=== PATIENT | female | born 1995 | race Asian ===

== ENCOUNTER 2024-09-12 11:13 | Emergency (ER) | payer MEDICAID, SELFPAY ==
[2024-09-12 11:16] VITALS: BP 144/81
--- NOTE | 2024-09-12 12:43 | ED.GENMED ---
History of Present Illness
General
Chief Complaint: Musculo-Skeletal Complaint
Source: patient
Exam Limitations: none
Time Seen by Provider: 09/12/24 11:45
History of Present Illness
History of Present Illness:
28yoF with a history of eczema and Raynaud's presenting for evaluation of flu-like symptoms. She started with malaise, fatigue, and feeling feverish yesterday. She woke up this morning and felt joint pains primarily in her lower extremities. She
also noticed a facial rash which appeared red on both cheeks. She took 800 mg of ibuprofen and her rash resolved. She also has a mild sore throat. She had UTI symptoms last week but denies any urinary symptoms currently. She denies any cough,
vomiting, diarrhea, recent travel, sick contacts. 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 She is mainly concerned that she may have lupus.
Past History
Past History
ED Past Medical History: None
ED Past Surgical History: None
Social History
Tobacco: Non-smoker
Personal: Single
Living: with family
Family History
Family History: Negative Early CAD or Sudden
Phy Exam
General Physical Exam
General Presentation: well appearing and no apparent distress
General age: appears stated age
General Skin: warm and dry
General Habitus: normal
General Mental: alert
ENT Exam
ENT Exam: TM's normal, pharynx normal, neck supple and normocephalic
Additional ENT: No meningismus
Cardiovascular Exam
Cardiovascular Exam: regular rate/rhythm and systolic murmur (known to patient)
Pulmonary Exam
Pulmonary Exam: lungs clear, no respiratory distress, no rales, no crackles, no rhonchi and no wheezing
Gastrointestinal Exam
Gastrointestinal Exam: non tender, soft and non distended
Neurological Exam
Neurological Exam: alert
Liana Coma Scale
Eye Opening: Spontaneous
Verbal Response: Oriented
Motor Response: Obeys Commands
GCS Total Score: 15
Musculoskeletal Exam
Musculoskeletal Exam: other (No joint swelling or erythema noted)
Skin Exam
Skin Exam: normal color and warm/dry
Psychiatric Exam
Psychiatric Exam: normal mood/affect
Course
Orders/Labs/Results
Orders:
Orders
09/12/24 12:33
0.9% Sodium Chloride 1000 ml [Nss] 1,000 ml IV BOLUS
Test Result ONCE
09/12/24 12:44
C-Reactive Protein Urgent
Comment: ADD ON
COVID-19 Antigen Urgent
Source: Nasal Swab
Complete Blood Count/With Diff Urgent
Comprehensive Metabolic Panel Urgent
Erythrocyte Sed Rate Urgent
Comment: ADD ON
HCG, Serum Qualitative Screen Urgent
Urinalysis Reflex To Culture Urgent
Date Specimen was Collected: 09/12/24
Time Specimen was Collected: 12:41
Urine Microscopic Reflex Cult Urgent
Influenza A+B Rapid Molecular Urgent
VINCENT Source: Nasal Swab
Specimen Description:
09/12/24 13:51
Add On- LAB Urgent
Tests Added?: ESR, CRP
Abnormal Lab Results
09/12/24
12:44
RBC 4.07 L 10^6/uL
(4.20-5.40)
Hgb 10.9 L g/dL
(12.0-16.0)
Hct 32.9 L %
(37.0-47.0)
MCV 80.8 L fL
(81.0-99.0)
MCH 26.8 L pg
(27.0-31.0)
RDW 14.8 H %
(11.5-14.5)
MPV 10.7 H fL
(7.4-10.4)
Absolute Monos (auto) 0.7 H 10^3/uL
(0.1-0.6)
Monocytes % 9.4 H %
(1.7-9.3)
Chloride 108 H mmol/L
(98-107)
Ur Occult Blood Reflex 2+ A
(Negative)
Urine RBC 7-10 A /HPF
(0-2)
Urine Bacteria (Reflex) Few A
(Negative)
Urine Albumin (Reflex) 1+ A
(Neg - Trace)
09/12/24 12:44
09/12/24 12:44
Vital Signs
Initial and Last Documented VS:
Initial Vital Signs
Temp Pulse Resp BP Pulse Ox
98.3 F 103 18 144/81 100
09/12/24 11:16 09/12/24 11:16 09/12/24 11:16 09/12/24 11:16 09/12/24 11:16
Last Documented Vital Signs
Temp Pulse Resp BP Pulse Ox
98.3 F 103 18 102/80 100
09/12/24 11:16 09/12/24 11:16 09/12/24 11:16 09/12/24 13:00 09/12/24 14:45
MDM/Problems Addressed
Differential Diagnosis Includes:
28yoF here with flu-like symptoms since yesterday. C/o sore throat, body aches, malaise, and feeling feverish. Temp 98.3 on arrival. She is well-appearing in no acute distress. Exam is reassuring. No visualized rash or joint swelling present.
No focal signs of infection on exam. Differential diagnosis includes but is not limited to: COVID, influenza, other viral illness, UTI
Initial ED plan: Check CBC, CMP, COVID/flu swab, and UA. IV fluid bolus.
*Critical Care Note
Total Time (30-74mins, 75-104mins- exclusive of procedures): Not Applicable
Update Note
Update Note:
Labs overall unremarkable including normal white count. COVID/flu testing negative. UA with hematuria without signs of infection. Patient believes she is starting her menstrual period. ESR and CRP ordered which came back normal. Patient feeling
improved on reassessment. No indication for hospitalization. Suspect viral illness. Supportive care discussed. Advised close follow-up with PCP and she was discharged in stable condition.
ED Attending Note
-
Portions of this chart may have been created with voice recognition software.� Occasional wrong word or��sound alike� substitutions may have occurred due to the inherent limitations of voice recognition software.
Discharge Plan
Departure
Patient Disposition: Home (Routine Discharge)
Date of Disposition: 09/12/24
Time of Disposition: 16:02
Patient with high blood pressure during this ER visit?: No
Discharge Problem:
Viral illness
Instructions: Upper Respiratory Infection ED
Prescriptions:
No Action
No Meds [No Current Medications]
ondansetron 4 MG tablet,disintegrating
4 mg PO TIDPRN PRN (Reason: nausea) Qty: 12 0RF
Referrals:
[facility] [Provider Group]
UNKNOWN - PT DOES,NOT KNOW [Family Provider] -
Activity Restrictions/Additional Instructions:
Drink plenty of fluids and rest. Take Tylenol and ibuprofen as needed for body aches/fevers.
Please follow-up with a family doctor. Return to the ER with any new or worsening symptoms.
Interventions
Interventions:
*Risk Screen - Suicide Last Done: 09/12/24 11:16
*General Assessment Last Done: 09/12/24 11:16
*Neglect/Abuse Screening Last Done: 09/12/24 11:16
*ED- Fall Risk Assessment Last Done: 09/12/24 12:44
*ED COVID-19 Vaccine History Last Done: 09/12/24 12:44
*Nursing Disposition Last Done: 09/12/24 16:40
ED-Musculoskeletal Assessment Last Done: 09/12/24 12:44
Discharge Date and Time
Discharge Date/Time: 09/12/24 16:41
Print Language: GEORGIAN
[2024-09-12] MEDS: NSS 1000 IV (12:49)
[2024-09-12 12:50] VITALS: BP 110/75
[2024-09-12 13:00] VITALS: BP 102/80
[2024-09-12 13:02] LABS: % Basophils 0.5 % (0-2); % Eosinophils 0.1 % (0-6); % Immature Granulocytes 0.3 % (0-0.5); % Lymphocytes 27.1 % (20.5-51.1); % Monocytes 9.4 % (1.7-9.3); % Neutrophils 62.6 % (42.2-75.2); Absolute Lymphocytes 2.1 10^3/uL (1.2-3.4); Absolute Monocytes 0.7 10^3/uL (0.1-0.6); Hematocrit 32.9 % (37.0-47.0); Hemoglobin 10.9 g/dL (12.0-16.0); Mean Corp Hgb Conc. 33.1 g/dL (33.0-37.0); Mean Corpuscular Hgb 26.8 pg (27.0-31.0); Mean Corpuscular Volume 80.8 fL (81.0-99.0); Mean Platelet Volume 10.7 fL (7.4-10.4); Nucleated Red Blood Cells % 0 %; Platelet Count 359 10^3/uL (130-400); Red Blood Cell Count 4.07 10^6/uL (4.20-5.40); Red Cell Dist. Width 14.8 % (11.5-14.5); White Blood Cell Count 7.9 10^3/uL (4.8-10.8)
[2024-09-12 13:10] LABS: HCG, Serum Qualitative Screen Negative
[2024-09-12 13:13] LABS: ALT (SGPT) 22 U/L (0-35); AST (SGOT) 26 U/L (14-36); Albumin 4.4 g/dl (3.5-5.0); Alkaline Phosphatase 44 U/L (38-126); Blood Urea Nitrogen 14 mg/dl (7-17); Calcium 9.9 mg/dl (8.4-10.2); Carbon Dioxide 27 mmol/L (22-30); Chloride 108 mmol/L (98-107); Glucose 94 mg/dl (70-99); Potassium 4.1 mmol/L (3.5-5.1); Sodium 142 mmol/L (135-145); Total Bilirubin 0.8 mg/dl (0.2-1.3); Total Protein 7.2 g/dl (6.3-8.2); eGFR > 60.00
[2024-09-12 13:16] LABS: COVID-19 Antigen Negative (Negative)
[2024-09-12 14:22] LABS: Erythrocyte Sed Rate 15 mm/hour (0-20)
[2024-09-12 14:33] LABS: C-Reactive Protein < 5.00 mg/L (0.0-10.00)
[2024-09-12 14:54] LABS: Urine Albumin 1+ (Neg - Trace); Urine Bilirubin Negative (Negative); Urine Character Cloudy (Clear); Urine Color Yellow; Urine Glucose Negative (Negative); Urine Ketone Negative (Negative); Urine Leukocyte Negative (Negative); Urine Nitrite Negative (Negative); Urine Occult Blood 2+ (Negative); Urine Specific Gravity 1.015 (<1.030); Urine Urobilinogen Negative (Neg - 1+)
[2024-09-12 16:06] LABS: Urine Squamous Cell 16-20 /LPF (Few)
[2024-09-12 16:07] LABS: Urine Amorphous Seen
[2024-09-12 16:08] LABS: Urine Bacteria Few (Negative)
== END 2024-09-12 16:41 | disposition home or self-care (01) ==
LOC: EMR 11:13
PROVIDERS: Physician Assistant; EMERGENCY PHYSICIAN Emergency Medicine
DX: B34.9 Viral infection, unspecified (principal); Z87.440 Personal history of urinary (tract) infections; Z11.52 Encounter for screening for COVID-19
CPT/HCPCS: 96360; 99284; 80053; 81003; 81015; 84703; 85025; 85652; 86140; 87502; 87811